=== PATIENT | male | born 1935 | race Caucasian/White ===

== ENCOUNTER → 2019-06-10 | Outpatient (CLI) | payer MEDICARE, OTHER ==
--- NOTE | 2019-06-10 16:36 | RADIOLOGY REPORT (SQ) ---
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 Images are not available TECHNIQUE: CT scan of the abdomen and pelvis performed using helical scanning technique with dynamic intravenous contrast injection. No oral contrast. Images reviewed with lung, soft tissue, and bone windows. Reconstructed coronal and sagittal MPR images reviewed. Delayed images for evaluation of the urinary system also acquired. All images stored on PACS. All CT scanners at this facility use dose modulation, iterative reconstruction, and/or weight based d osing when appropriate to reduce radiation dose to as low as reasonably achievable (ALARA). [facility]: Dose Right [facility]: CareDose [facility]: Dose Right [facility]: Teradose 4D [facility]: EcoGroomer CONTRAST TYPE AND DOSE: contrast/concentration: Isovue 350.00 mg/ml; Total Contrast Delivered: 100.0 ml; Total Saline Delivered: 72.0 ml RENAL FUNCTION: Creatinine 1.0 RADIATION DOSE: CT Rad equipment meets quality standard of care and radiation dose reduction techniq ues were employed. CTDIvol: 13.3 - 13.3 mGy. DLP: 1483 mGy-cm.. LIMITATIONS: None. FINDINGS: LOWER CHEST: Subcentimeter smooth round subpleural nodules are present at both lung bases. These have been previously described on outside CT chest exams since 2016. No gross pleural effusi on. Calcified aortic valve with mild cardiomegaly LIVER: Normal size. No masses. No dilated ducts. SPLEEN: Normal size. No focal lesions. PANCREAS: No masses. No significant calcifications. No adjacent inflammation or peripancreatic fluid collections. Pancreatic duct not dilated. GALLBLADDER: Stones in the gallbladder layering dependently on axial image 29. No biliary ductal dil atation ADRENAL GLANDS: No significant masses or asymmetry. RIGHT KIDNEY AND URETER: No solid masses. 1 cm hyperdense hemorrhagic cyst posterior right mid-pole kidney axial image 40. No significant calcifications. No hydronephrosis or hydroureter. LEFT KIDNEY AND URETER: No solid masses. 3 cm left midpole renal cortical cyst. No significant calc ifications. No hydronephrosis or hydroureter. AORTA AND VESSELS: No aneurysm. No dissection. Renal arteries, SMA, celiac without stenosis. RETROPERITONEUM: No retroperitoneal adenopathy, hemorrhage or masses. BOWEL AND PERITONEAL CAVITY: Patient drank oral contrast. No CT evidence of bowel obstruction. No f ree intraperitoneal air or free fluid. Moderate burden of colonic diverticulosis along the distal de scending/ proximal sigmoid colon. No pericolic inflammation. APPENDIX: Normal. PELVIS: Enlarged prostate. No free fluid. Normal bladder. 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 IMPRESSION: 1 cm hyperdense nodule posterior right mid-pole kidney likely a hemorrhagic cyst. Stones in the gallbladder without gallbladder wall thickening or pericholecystic fluid Colonic diverticulosis without CT signs of acute diverticulitis Subcentimeter pleural-based nodules at both lung bases described on prior outside CT chest reports da rhettg back to 2016. TECHNICAL DOCUMENTATION: JOB ID: [id number] Quality ID # [id number]: Final reports with documentation of one or more dose reduction techniques (e.g., Au tomated exposure control, adjustment of the mA and/or kV according to patient size, use of iterative reconstruction technique) 2010 [employer]- All Rights Reserved Reading location - IP/workstation name: [email or web address]
--- NOTE | 2019-06-10 17:59 | RADIOLOGY REPORT (SQ) ---
EXAM DESCRIPTION: NM WHOLE BODY BONE SCAN COMPLETED DATE/TIME: 06/10/2019 2:01 pm REASON FOR STUDY: PROSTATE CA (C61 C61 MALIGNANT NEOPLASM OF PROSTATE COMPARISON: CT abdomen 06/10/2019 RADIONUCLIDE AND DOSE: 23 millicuries Tc99m MDP. The route of agent administration: Intravenous. ADDITIONAL DRUGS AND DOSES: None. TECHNIQUE: Routine delayed images at 3 hours post radionuclide injection acquired of the bony skelet on including anterior and posterior whole-body projections and additional focused images as needed. LIMITATIONS: None. FINDINGS: BONES: There is increased uptake over the bilateral sternoclavicular joints, lower cervica l spine, lower thoracic spine, and lower lumbar spine in characteristic distribution for arthritis. Mild increased uptake along the periphery of the left total knee replacement. No long bone or rib activity worrisome for metastatic disease. KIDNEYS: Symmetric excretion without obstruction. OTHER: No other significant finding. IMPRESSION: No bone scan evidence for metastatic disease given history of prostate cancer COMMENT: Quality measure 147: Current bone scan is compared with any available plain radiographs, p rior bone scans, and CT/MRI. TECHNICAL DOCUMENTATION: JOB ID: [id number] [employer]- All Rights Reserved Reading location - IP/workstation name: [email or web address]
== END ==
LOC: RAD 08:16
PROVIDERS: ATTEND Urology
DX: C61 Malignant neoplasm of prostate (principal)
CPT/HCPCS: 78306; 74177; A9561; Q9969